=== PATIENT | male | born 1955 | race African-American/Black ===

== ENCOUNTER 2017-03-19 16:03 | Emergency (ER) | payer MEDICAID ==
[~2017-03-19] VITALS: Ht 172.7 cm; Wt 79.6 kg
[2017-03-19 22:35] VITALS: BP 131/78
== END 2017-03-19 22:36 | disposition home or self-care (01) ==
LOC: ER 16:15
DX: K64.4 Residual hemorrhoidal skin tags (principal); F17.200 Nicotine dependence, unspecified, uncomplicated; H40.9 Unspecified glaucoma
CPT/HCPCS: 99283

== ENCOUNTER 2021-10-17 13:40 | Emergency (ER) | payer MEDICAID ==
[~2021-10-17] VITALS: Ht 182.9 cm; Wt 81.0 kg
[2021-10-17] MEDS ORDERED: HYDROCODONE/ACETAMINOPHEN 10/325MG TABLET PO ONE (15:15)
[2021-10-17 15:55] LABS: BASOPHILS % 0.3 % (0.0-2.0); EOSINOPHILS % 3.3 % (0.0-5.0); HEMATOCRIT. 38.2 % (42.0-52.0); HEMOGLOBIN. 12.1 g/dL (14.0-18.0); LYMPHOCYTES % 28.3 % (20.0-50.0); MEAN CORPUSCULAR HEMOGLOBIN 26.2 pg (28.0-32.0); MEAN CORPUSCULAR VOLUME 82.8 fL (80.0-94.0); MEAN PLATELET VOLUME 9.8 fl (7.4-10.4); MONOCYTES % 10.5 % (2.0-8.0); NEUTROPHILS % 57.6 % (40.0-76.0); PLATELET 342 x1000/uL (130-400); RED BLOOD CELL COUNT 4.62 mill/uL (4.7-6.1); RED CELL DISTRIBUTION WIDTH 17.6 % (11.6-14.6)
[2021-10-17 15:58] LABS: CHLORIDE 107 mEq/L (98-107)
[2021-10-17 18:00] VITALS: BP 144/72
[2021-10-17] MEDS ORDERED: IBUP-2029 MT (18:35)
[2021-10-17] MEDS ORDERED: TOPUD MT (18:35)
== END 2021-10-17 18:59 | disposition home or self-care (01) ==
LOC: ER 13:40
DX: R07.89 Other chest pain (principal); Z98.890 Other specified postprocedural states
CPT/HCPCS: 36415; 71101; 80053; 83880; 84484; 85025; 93005; 99285